=== PATIENT | female | born 1955 | race Caucasian/White ===

== ENCOUNTER 2023-05-25 12:36 | Outpatient (REF) | payer MEDICARE, SELFPAY ==
[2023-05-26 13:58] LABS: Influenza A PCR NEGATIVE (Negative); Influenza B PCR NEGATIVE (Negative); Resp Syncy Virus RNA Qual PCR NEGATIVE (Negative); SARS COV2 PCR INHOUSE NEGATIVE (Negative)
== END 2023-05-25 12:37 | disposition home or self-care (01) ==
LOC: HO.HMGCLNP 12:36
PROVIDERS: Visit Provider Physician Assistant
DX: Z11.52 Encounter for screening for COVID-19 (principal); J01.10 Acute frontal sinusitis, unspecified; Z20.822 Contact with and (suspected) exposure to COVID-19
CPT/HCPCS: 0241U

== ENCOUNTER 2023-05-25 14:30 | Outpatient (AMB) | payer MEDICARE, SELFPAY ==
--- NOTE | 2023-05-25 14:28 | AM.OFFWIN_ITS ---
Intake Vital Signs 05/25/23 14:34 Height 5 ft 6 in Weight 272 lb BMI 43.9 BP 110/70 Blood Pressure Location Rt brachial Position Sitting Pulse 94 Pulse Source Pulse Oximeter Temp 97.7 F Temp Source Temporal Artery Scan Pulse Oximetry (%) 98 Intake Visit Reasons: EP, congestion, headache ([phone]) Intake Note: pt is here today for congestion, headache started last Allergies No Known Allergies Allergy (Verified 05/25/23 14:33) Do you need a note to return to daycare/school/sports/work: Yes HPI HPI Comments History of Present Illness Details This is a 67-year-old female with a past medical history of seasonal allergies presenting for evaluation of postnasal drip, cough and sinus pressure that she has had for the past 1 week. Patient was treated with a Z-Rosalio in April 2003 and is requesting a refill of this antibiotic therapy. Patient denies having any fevers, chills, ear pain, chest pain, shortness of breath or shortness of breath with exertion. Patient states that she has a primary care physician appointment tomorrow at [facility]. Review of Systems Const All systems reviewed & are unremarkable except as noted in HPI and below Denies chills, Denies fatigue, Denies fever(s), Denies headache(s) and Denies malaise Eyes Reports as per HPI ENT Reports no additional complaints, Denies headache(s), Reports sinus pain, Reports sinus pressure and Denies sore throat Card Reports no additional complaints Resp Reports no additional complaints Musc Reports no additional complaints Neuro Denies headache(s) Endo Denies fatigue Physical Exam Vital Signs: Last Vital Signs Temp 97.7 F 05/25/23 14:34 Pulse 94 05/25/23 14:34 BP 110/70 05/25/23 14:34 Pulse Ox 98 05/25/23 14:34 BMI result Body Mass Index 43.9 Const General: cooperative, healthy appearing, comfortable and no acute distress Nutritional Appearance: obese Orientation/consciousness: patient oriented x3 Limitations: no limitations HEENT Head: Yes normal to inspection Ears: hearing grossly normal bilaterally, external ears normal, TM's normal bilaterally and EAC's normal General nose exam: Normal external nose present Face and sinus: Yes normal facial exam Mouth: Normal oral and palatal mucosa present Throat: Yes posterior oropharynx normal (There is no edema, erythema or exudates of the posterior oropharynx) and Yes postnasal drainage Eyes Eyelids: Yes eyelids normal Conjunctivae: conjunctivae normal Sclerae: sclerae normal Corneas: corneas normal Pupils: Equal, round and reactive pupils present EOM: EOMs intact bilaterally Resp Effort & Inspection: normal respiratory effort, able to speak in complete sentences, no cough and no respiratory distress Auscultation: clear to auscultation bilaterally, breath sounds present and lung sounds not diminished Cardio Rate: regular rate Rhythm: regular rhythm Skin General skin exam: no rashes or lesions noted Neuro General: patient oriented x3 Cranial nerves: Yes Equal, round and reactive pupils present Psych Appearance: grossly normal Mental Status: mental status grossly normal Insight: Good insight present (Psych) Judgement: Good judgement present (Psych) Results AMB Rapid Strep AMB Rapid Strep Negative Last Edit by Davida Perez CMA on 05/25/23 15:05 Results Reviewed Results Reviewed: Laboratory Last Values Strep Scn [facility] Negative 05/25/23 15:04 negative strep reviewed with patient. Assessment & Plan Assessment & Plan (1) Upper respiratory infection: Code(s): J06.9 - Acute upper respiratory infection, unspecified Plan SARS panel is ordered and pending; patient will use Tylenol or ibuprofen for discomfort increase clear fluids daily. Patient plans on seeing her primary care physician at [facility] tomorrow for further evaluation and care. Orders: Orders SARS-CoV2/FLU/RSV 05/26/23 J01.10 - Acute frontal sinusitis, unspecified AMB Rapid Strep Screen 05/25/23 Z13.9 - Encounter for screening, unspecified Coding Level of Care Code Est Pt Level 3 (73727) Diagnoses Upper respiratory infection J06.9 Time Spent (min) 20
[2023-05-25 14:34] VITALS: BP 110/70; PULSE 94; TEMP 36.5; O2SAT 98; BMI 43.9
== END 2023-05-25 15:32 | disposition home or self-care (01) ==
PROVIDERS: Visit Provider Physician Assistant
DX: J06.9 Acute upper respiratory infection, unspecified (principal)
CPT/HCPCS: 87880; 99213